=== PATIENT | female | born 1950 | race Caucasian/White ===

== ENCOUNTER 2021-01-22 06:13 | Day surgery (SDC) | payer MEDICARE ==
[~2021-01-22 06:13] MED LIST: Lactated Ringers 1,000 ML IV SCH; Lidocaine 1% 4 ML ONE; Lidocaine 1%/Sod Bicarbonate in NS 8.4% 1 ML Syringe IDERM PRN; Midazolam 1 MG/ML 2 ML SDV ONE; Propofol 200 MG/20 ML SDV ONE; Sodium Chloride 0.9% 10 ML Syringe FLUSH PRN; ceFAZolin 1 GM Vial ONE; fentaNYL 100 MCG/2 ML SDV ONE
[2021-01-22] MEDS ORDERED: Bupivacaine 0.25% 10 ML SDV ONE (06:17)
[2021-01-22] MEDS ORDERED: Lidocaine 1% 30 ML SDV ONE (06:17)
--- NOTE | 2021-01-22 06:35 | PCM.PREANE ---
Preanesthetic Assessment - Anesthesia/Transfusion/Family Hx Anesthesia History: Prior Anesthesia Without Reaction Family History of Anesthesia Reaction: No Transfusion History: Prior Transfusion Without Reaction Intubation History: Unknown - Review of Systems General: No Symptoms Pulmonary: No Symptoms Cardiovascular: No Symptoms Gastrointestinal: No Symptoms Neurological: No Symptoms Other: Reports: None - Physical Assessment NPO Status Date: 01/21/21 NPO Status Time: 20:00 ASA Class: 2 Mental Status: Alert & Oriented x3 Airway Class: Mallampati = 1 Dentition: Reports: Normal Dentition Thyro-Mental Finger Breadths: 3 Mouth Opening Finger Breadths: 3 Lungs: Clear to Auscultation, Normal Respiratory Effort Cardiovascular: Regular Rate, Regular Rhythm, Murmurs - Allergies Allergies/Adverse Reactions: Allergies Allergy/AdvReac Type Severity Reaction Status Date / Time hydromorphone [From Dilaudid] Allergy Itching Verified 01/19/21 15:15 morphine Allergy Itching Verified 01/19/21 15:15 nickel Allergy Rash Verified 01/19/21 15:15 sulfate ion Allergy Fever Verified 01/19/21 15:15 - Acknowledgements Anesthesia Type Planned: MAC Pt an Appropriate Candidate for the Planned Anesthesia: Yes Alternatives and Risks of Anesthesia Discussed w Pt/Guardian: Yes Pt/Guardian Understands and Agrees with Anesthesia Plan: Yes PreAnesthesia Questionnaire HEENT History: Reports: Hard of Hearing, Impaired Vision, Other (See Below) Other HEENT History: has glasses, hearing aids Cardiovascular History: Reports: High Cholesterol, Hypertension, Other (See Be low) Other Cardiovascular History: mitral insufficiency, chest pain Respiratory History: Reports: None Gastrointestinal History: Reports: Chronic Constipation, GERD, Hiatal Hernia Other Gastrointestinal History: fatty liver Genitourinary History: Reports: Other (See Below) Other Genitourinary History: cystocele TOBACCO SIZER History: Reports: Other (See Below) Other OB/BYN History: hot flashes Musculoskeletal History: Reports: Osteoarthritis, Other (See Below) Other Musculoskeletal History: left hip osteonecrosis, polyarthritis, Pagets, right toe pain Neurological History: Reports: Other (See Below) Other Neuro History: scoliosis, sacroilitis, sacral back pain, polyneuropathy, cervical stenosis Psychiatric History: Reports: Other (See Below) Other Psychiatric History: insomnia Endocrine/Metabolic History: Reports: Vitamin D Deficiency Hematologic History: Reports: Anemia Immunologic History: Reports: None Oncologic (Cancer) History: Reports: None Other Dermatologic History: hemangioma, [id number] spots, 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 - Past Surgical History Cardiovascular Surgical History: Reports: None Respiratory Surgical History: Reports: None GI Surgical History: Reports: None Female Surgical History: Reports: Hysterectomy Male Surgical History: Reports: None Endocrine Surgical History: Reports: None Neurological Surgical History: Reports: Lumbar Spine Musculoskeletal Surgical History: Reports: Carpal Tunnel, Hip Replacement, Knee Replacement Oncologic Surgical History: Reports: None - SUBSTANCE USE Tobacco Use Status *Q: Former Tobacco User Recreational Drug Use History: No - HOME MEDS Home Medications: Home Meds Ascorbic Acid [Vitamin C] 500 mg PO DAILY 01/19/21 [History] Calcium Carbonate [Calcium] 600 mg PO BID 01/19/21 [History] Celecoxib 200 mg PO BID 01/19/21 [History] Cholecalciferol (Vitamin D3) [Vitamin D3] 1,000 unit PO DAILY 01/19/21 [History] Cyclobenzaprine [Flexeril] 5 mg PO TID PRN 01/19/21 [History] DULoxetine [Cymbalta] 20 mg PO DAILY 01/19/21 [History] Diclofenac Sodium [Voltaren 1% Gel] 1 dose TOP QID 01/19/21 [History] Folic Acid 1 mg PO DAILY 01/19/21 [History] Gabapentin [Gralise] 600 mg PO TID 01/19/21 [History] Glucosamine Sulfate Dipot Chlr [Glucosamine] 1,000 mg PO DAILY 01/19/21 [History] Lactobacillus Combination No.4 [Probiotic] 1 cap PO DAILY 01/19/21 [History] Losartan [Cozaar] 50 mg PO DAILY 01/19/21 [History] Methotrexate Sodium/PF [Methotrexate 1 gm Vial] 0.8 gm IM Q7D 01/19/21 [History] Multivitamin 1 tab PO DAILY 01/19/21 [History] Pantoprazole Sodium [Protonix] 40 mg PO DAILY 01/19/21 [History] Pilocarpine [Salagen] 5 mg PO TID 01/19/21 [History] polyethylene glycoL 3350 [MiraLAX] 1 dose PO DAILY PRN 01/19/21 [History] traZODone HCl [Trazodone HCl] 150 mg PO BEDTIME 01/19/21 [History] - CURRENT (IN HOUSE) MEDS Current Meds: Current Medications Lactated Ringer's (Ringers, Lactated) 1,000 mls @ 125 mls/hr IV ASDIRECTED DAYAMI Stop: 01/22/21 23:00 Lidocaine/Sodium Bicarbonate (Lidocaine 1%/Sod Bicarbonate In Ns 8.4% 1 Ml Syringe) 0.25 ml IDERM ONETIME PRN PRN Reason: Prior to IV Start Stop: 01/22/21 18:00 Sodium Chloride (Sodium Chloride 0.9% 10 Ml Syringe) 10 ml FLUSH ASDIRECTED PRN PRN Reason: Keep Vein Open Stop: 01/22/21 18:00 Discontinued Medications Bupivacaine HCl (Bupivacaine 0.25% 10 Ml Sdv) Confirm Administered Dose 10 ml .ROUTE .STK-MED ONE Stop: 01/22/21 06:18 Cefazolin Sodium (Cefazolin 1 Gm Vial) Confirm Administered Dose 2 gm .ROUTE .STK-MED ONE Stop: 01/22/21 06:13 Fentanyl (Fentanyl 100 Mcg/2 Ml Sdv) Confirm Administered Dose 100 mcg .ROUTE .STK-MED ONE Stop: 01/22/21 06:13 Lidocaine HCl (Xylocaine-Mpf 1%) Confirm Administered Dose 4 mls @ as directed .ROUTE .STK-MED ONE Stop: 01/22/21 06:13 Lidocaine HCl (Lidocaine 1% 30 Ml Sdv) Confirm Administered Dose 30 ml .ROUTE .STK-MED ONE Stop: 01/22/21 06:18 Midazolam HCl (Midazolam 1 Mg/Ml 2 Ml Sdv) Confirm Administered Dose 2 mg .ROUTE .STK-MED ONE Stop: 01/22/21 06:13 Propofol (Propofol 200 Mg/20 Ml Sdv) Confirm Administered Dose 200 mg .ROUTE .STK-MED ONE Stop: 01/22/21 06:13
[2021-01-22] MEDS ORDERED: Ketorolac 30 MG/ML SDV ONE (07:28)
[2021-01-22] MEDS ORDERED: Ondansetron 4 MG/2 ML SDV ONE (07:28)
--- NOTE | 2021-01-22 07:42 | PCM48HPAN ---
Post Anesthesia Note - EVALUATION WITHIN 48HRS OF ANESTHETIC Vital Signs in Normal Range: Yes Patient Participated in Evaluation: Yes Respiratory Function Stable: Yes Airway Patent: Yes Cardiovascular Function Stable: Yes Hydration Status Stable: Yes Pain Control Satisfactory: Yes Nausea and Vomiting Control Satisfactory: Yes Mental Status Recovered: Yes Vital Signs: Last Vital Signs Temp 36.6 C 01/22/21 06:20 Pulse 68 01/22/21 06:20 Resp 17 01/22/21 06:20 BP 155/59 H 01/22/21 06:35 Pulse Ox 95 01/22/21 06:20
--- NOTE | 2021-01-22 09:20 | PCM.OPNOTE ---
- General Post-Op/Procedure Note Date of Surgery/Procedure: 01/22/21 Operative Procedure(s): right carpal tunnel release Pre Op Diagnosis: right median nerve compression neuropathy Post-Op Diagnosis: Same Anesthesia Technique: Local, MAC Primary Surgeon: Alex Reynolds Anesthesia Provider: Beti Zamorano Skin Care Technician: Lara Mahan EBL in mLs: 5 Complications: None Condition: Good
--- NOTE | 2021-02-05 12:28 | OR ---
DATE OF OPERATION: 01/22/2021 SURGEON: Alex Reynolds MD OPERATION PERFORMED: Right carpal tunnel release. PREOPERATIVE DIAGNOSIS: Right median nerve compression neuropathy. POSTOPERATIVE DIAGNOSIS: Right median nerve compression neuropathy. ANESTHESIA: Local MAC. ANESTHESIA PROVIDER: Beti Zamorano CRNA CRYPTOANALYSIS TEACHER: Lara Mahan PA-C ESTIMATED BLOOD LOSS: Less than 5 mL. COMPLICATIONS: None. CONDITION: Stable. DESCRIPTION OF PROCEDURE: The patient was identified in the preop holding area. Proper site was marked and identified by the surgeon. The patient was taken back to the operating theater where after adequate anesthesia, the patient's right upper extremity was sterilely prepped and draped in the usual sterile fashion. OR time-out was performed. The patient did not receive antibiotics and it is not indicated for soft tissue hand procedure. At this time, the right upper extremity was exsanguinated and an Esmarch was used as a tourniquet on the forearm. At this time, using 1% lidocaine without epinephrine and 0.25% Marcaine without epinephrine, the palmar cutaneous branch of the median nerve was anesthetized and then the incisional site was anesthetized using Acosta cardinal line and ulnar border of the fourth digit as reference. Once this had set up, an incision was made. Blunt dissection was taken down to the palmar cutaneous fascia. Palmar cutaneous fascia was incised with a Torres Martinez blade. At this time, the transverse carpal ligament was identified. A small rent was made in the transverse carpal ligament with a Torres Martinez blade under direct visualization. Resection of the transverse carpal ligament was done distally using tenotomy scissors making sure to stop short of the palmar arch. At this time, attention was turned proximally after it was found to be adequately released. Using the tenotomy scissors keeping the tips ulnar to protect the palmar cutaneous branch of the median nerve, the superficial forearm fascia as well as the transverse carpal ligament were resected proximally. It was found to be adequate release both proximally and distally. At this time, adequate saline was irrigated through the wound. 4-0 nylon sutures were used closure of the skin. The patient was placed in a sterile soft dressing and sent to PACU in stable condition. MMODAL /[id number]
== END 2021-01-22 08:41 | disposition home or self-care (01) ==
LOC: JD.SDS 06:13
PROVIDERS: ATTEND Orthopaedic Surgery
DX: G56.11 Other lesions of median nerve, right upper limb (principal); F51.04 Psychophysiologic insomnia; I10 Essential (primary) hypertension; E78.00 Pure hypercholesterolemia, unspecified; Z87.891 Personal history of nicotine dependence; Z79.899 Other long term (current) drug therapy; Z88.2 Allergy status to sulfonamides; Z88.8 Allergy status to other drugs, medicaments and biological substances; Z98.890 Other specified postprocedural states
CPT/HCPCS: 64721; J0690; J1885; J2250; J2405; J2704; J3010; J3490; J7120; 01810